=== PATIENT | female | born 1980 | race Caucasian/White ===

== ENCOUNTER 2019-03-05 00:02 | Day surgery (SDC) | payer BC ==
[2019-03-05] MEDS ORDERED: Sleep Aid25 MG PO (10:23)
[2019-03-05] MEDS ORDERED: PROCTOSOL-HC30 GM EXT (10:51)
[2019-03-05] MEDS ORDERED: AMERICAINE28 GM (10:52)
[2019-03-05] MEDS ORDERED: EPIPEN 2-P0.3 MG/0.3 IM (10:53)
== END 2019-03-05 10:26 | disposition home or self-care (01) ==
LOC: ATC 00:02
DX: Z11.1 Encounter for screening for respiratory tuberculosis (principal); F41.9 Anxiety disorder, unspecified; F32.9 Major depressive disorder, single episode, unspecified; Z91.018 Allergy to other foods; Z91.048 Other nonmedicinal substance allergy status; Z87.891 Personal history of nicotine dependence
CPT/HCPCS: 86580